=== PATIENT | female | born 1940 | race African-American/Black ===

== ENCOUNTER 2018-09-20 19:45 | Emergency (ER) | payer MEDICARE, MEDICAID ==
[2018-09-20] MEDS ORDERED: Ketorolac Tromethamine 30 MG/ML VIAL ONE (20:15)
[2018-09-20] MEDS ORDERED: Methocarbamol 500 MG TAB ONE (20:15)
[2018-09-20 20:31] LABS: #Eosinphils 0.1 thou/uL (0.0-0.7); #Lymphocytes 2.1 thou/uL (1.20-3.40); #Monocytes 0.5 thou/uL (0.11-0.59); #Neutrophils 2.2 thou/uL (1.40-6.50); %Basophils 0.8 % (0.0-1.0); %Lymphocytes 42.1 % (21.0-51.0); %Monocytes 10.7 % (0.0-10.0); %Neutrophils 44.3 % (42.0-75.0); Hemoglobin 12.6 g/dL (12.0-16.0); Mean Corpuscular Hemoglobin 32.1 pg (27.0-31.0); Mean Corpuscular Volume 94.3 fL (78.0-98.0); Mean Platelet Volume 6.3 fL (7.4-10.4); Platelet Count 230 thou/uL (130-400); RBC Distribution Width 12.3 % (11.5-14.5); Red Blood Cell (RBC) Count 3.92 mill/uL (4.20-5.40); White Blood Cell (WBC) Count 4.9 thou/uL (4.8-10.8)
[2018-09-20 20:33] LABS: Bilirubin Negative (Negative); Blood, Urine Moderate (Negative); Clarity Clear (Clear); Glucose, Urine (Dipstick) Negative (Negative); Leukocyte Small (Negative); Nitrite Negative (Negative); Protein, Urine (Dipstick) Negative (Neg-Trace); Specific Gravity, Urine 1.006 (1.002-1.036); Urobilinogen 0.2 mg/dL (0.2-1.0); pH, Urine 6.5 (5.0-9.0)
[2018-09-20 20:37] LABS: Bacteria/HPF Rare-Few HPF (None Seen); Squamous Epithelial 0-3 HPF (0-3)
[2018-09-20 20:46] LABS: ALT (SGPT) 13 U/L (8-55); AST (SGOT) 22 U/L (5-34); Alkaline Phosphatase 93 U/L (40-150); Anion Gap 13 mmol/L (10-20); BUN (Urea Nitrogen) 22 mg/dL (9.8-20.1); Bilirubin, Total 0.4 mg/dL (0.2-1.2); Calc. Creatinine Clearance 0 mL/min (70-130); Calcium 9.3 mg/dL (7.8-10.44); Carbon Dioxide 25 mmol/L (23-31); Chloride 104 mmol/L (98-107); Estimated GFR-MDRD 39; Glucose 103 mg/dL (83-110); Potassium 4.3 mmol/L (3.5-5.1); Sodium 138 mmol/L (136-145)
--- NOTE | 2018-09-20 22:35 | CT ---
CT ABDOMEN AND PELVIS WITHOUT CONTRAST: History: Right flank pain, breast cancer. Status post left mastectomy and hysterectomy. Comparison: 07-04-14 FINDINGS: Absence of oral and IV contrast reduces the sensitivity of the exam for evaluation of solid organs an d bowel. Tiny nodule in the left lung base is stable. No free air or free fluid is seen in the abdomen or pelv is. No calcified gallstones are seen. Calcified granulomas are noted in the spleen. There is a normal appearing appendix. There are vascular calcifications without evidence of aneurysmal dilatation of t he abdominal aorta. There are degenerative changes in the spine. The patient is post hysterectomy. Th ere colonic diverticulosis without evidence of diverticulitis. No calculi are seen within either ureters or the urinary bladder. No hydroureteronephrosis are seen o n either side. A small radiopaque cyst arising from the left kidney is again seen. IMPRESSION: 1. No CT evidence of urinary calculi or obstruction. 2. Colonic diverticulosis. POS: [facility]
== END 2018-09-20 21:33 | disposition home or self-care (01) ==
LOC: SCSER 19:45
DX: R10.9 Unspecified abdominal pain (principal); N39.0 Urinary tract infection, site not specified; E78.5 Hyperlipidemia, unspecified
CPT/HCPCS: 36415; 74176; 80053; 81003; 81015; 85025; 87086; 96372; J1885

== ENCOUNTER 2020-11-02 15:31 | Outpatient (CLI) | payer MEDICARE, MEDICAID | END 2020-11-02 15:32 | disposition home or self-care (01) | LOC: BICMAMMO 15:31 | PROVIDERS: ATTEND Family Medicine | DX: Z12.31 Encounter for screening mammogram for malignant neoplasm of breast (principal); Z80.3 Family history of malignant neoplasm of breast; Z85.3 Personal history of malignant neoplasm of breast; Z90.12 Acquired absence of left breast and nipple | CPT/HCPCS: 77063; 77067 ==

== ENCOUNTER 2021-11-05 15:14 | Outpatient (CLI) | payer MEDICARE, MEDICAID | END 2021-11-05 15:15 | disposition home or self-care (01) | LOC: BICMAMMO 15:14 | PROVIDERS: ATTEND Family Medicine | DX: Z12.31 Encounter for screening mammogram for malignant neoplasm of breast (principal); Z85.3 Personal history of malignant neoplasm of breast; Z80.3 Family history of malignant neoplasm of breast; Z90.12 Acquired absence of left breast and nipple | CPT/HCPCS: 77063; 77067 ==

== ENCOUNTER 2023-04-22 15:09 | Outpatient (CLI) | payer MEDICARE, MEDICAID | END 2023-04-22 15:10 | disposition home or self-care (01) | LOC: BICRAD 15:09 | PROVIDERS: ATTEND Family Medicine | DX: M54.6 Pain in thoracic spine (principal); M47.814 Spondylosis without myelopathy or radiculopathy, thoracic region; M40.294 Other kyphosis, thoracic region | CPT/HCPCS: 72072 ==

== ENCOUNTER → 2023-07-18 | Outpatient (CLI) | payer MEDICARE, MEDICAID | LOC: PET 09:30 | PROVIDERS: ATTEND Internal Medicine | DX: C79.51 Secondary malignant neoplasm of bone (principal); M84.48XA Pathological fracture, other site, initial encounter for fracture; M40.204 Unspecified kyphosis, thoracic region; R59.0 Localized enlarged lymph nodes | CPT/HCPCS: 78815; A9552 ==